=== PATIENT | female | born 1980 | race Caucasian/White ===

== ENCOUNTER 2022-12-27 12:42 | Emergency (ER) | payer MEDICAID ==
[~2022-12-27] VITALS: Ht 157.5 cm; Wt 76.7 kg
[2022-12-27] MEDS ORDERED: IV NORMAL SALINE 1000 ML BAG IV ONE (13:00)
[2022-12-27] MEDS ORDERED: ONDANSETRON 4 MG/2 ML VIAL IV ONE (13:00)
[2022-12-27 13:13] LABS: HEMATOCRIT 39.3 % (31.2-41.9); MEAN CORPUSCULAR HEMOGLOBIN 26.5 uug (24.7-32.8); MEAN CORPUSCULAR VOLUME 82.2 fL (75.5-95.3); PLATELET COUNT (AUTO) 394 K/uL (179-408)
[2022-12-27 13:15] LABS: CREATININE 0.7 mg/dL (0.6-1.3); POTASSIUM 3.9 mmol/L (3.5-5.1)
[2022-12-27] MEDS ORDERED: ONDANSETRON 4 MG/2 ML VIAL ONE (13:15)
--- NOTE | 2022-12-27 13:20 | NUR ---
Pt in bed seen and examined by MD Alvarez
--- NOTE | 2022-12-27 14:13 | NUR ---
urine collected and sent to lab
[2022-12-27 14:17] LABS: *BILIRUBIN,URIN NEGATIVE (NEGATIVE); *BLOOD, URINE NEGATIVE (NEGATIVE); *CLARITY,URINE CLEAR (CLEAR); *COLOR,URINE YELLOW (YELLOW); *KETONES,URINE NEGATIVE (NEGATIVE); *URINE HCG, QUAL NEG (NEGATIVE); *UROBILINOGEN,URINE 0.2 E.U./dl (NORMAL); LEUKOCYTE ESTERASE ,URINE NEGATIVE (NEGATIVE); NITRITE, URINE NEGATIVE (NEGATIVE); UGLUCOSE NEGATIVE (NEGATIVE)
[2022-12-27] MEDS ORDERED: ONDA4TAB5 PO (14:25)
--- NOTE | 2022-12-27 14:39 | NUR ---
Patient discharged to home in stable condition. Written and verbal after care instructions given. Patient verbalizes understanding of instructions. Stressed follow up or return to ER for worsening s/s.
[2022-12-27 14:41] VITALS: BP 112/80
== END 2022-12-27 14:41 | disposition home or self-care (01) ==
LOC: ER 12:42
DX: R55 Syncope and collapse (principal); Z88.5 Allergy status to narcotic agent; Z90.49 Acquired absence of other specified parts of digestive tract
CPT/HCPCS: 99285; 96374; 71045; 96361; 80048; 81003; 82962; 84703; 85025; 36415; 93005; J2405; J7040; A4663